=== PATIENT | male | born 1940 | race Caucasian/White ===

== ENCOUNTER → 2019-11-24 | Outpatient (CLI) | payer MEDICARE, OTHER ==
[~2019-11-24] MED LIST: ASPI-515 PO; ASPI-650 PO; ATOR40TA78 PO; CLOP75TA52 PO; FURO20TA3 PO; LORA-445 PO; OMEP20CA20 PO; POTA10TA5 PO
== END | disposition home or self-care (01) ==
LOC: CVU 08:25
PROVIDERS: ATTEND Internal Medicine Cardiovascular Disease
DX: Z01.810 Encounter for preprocedural cardiovascular examination (principal); I65.23 Occlusion and stenosis of bilateral carotid arteries; I35.0 Nonrheumatic aortic (valve) stenosis; I25.10 Atherosclerotic heart disease of native coronary artery without angina pectoris; J90 Pleural effusion, not elsewhere classified; J98.11 Atelectasis; I71.4 Abdominal aortic aneurysm, without rupture; M48.56XA Collapsed vertebra, not elsewhere classified, lumbar region, initial encounter for fracture; M85.80 Other specified disorders of bone density and structure, unspecified site; I70.8 Atherosclerosis of other arteries
CPT/HCPCS: 71250; 74176; 93880; 93978; 94060; 94726; 94729

== ENCOUNTER 2019-11-28 09:40 | Inpatient (IN) | payer MEDICARE ==
[~2019-11-28] VITALS: Ht 185.4 cm; Wt 98.4 kg
--- NOTE | 2019-11-28 09:41 | NUR ---
PT BROUGHT IN BY [facility] FROM HOME WITH CHIEF COMPLAINT OF SLURRED SPEECH, LEFT SIDED WEAKNESS. LAST SEEN NORMAL [id number]. EMS FSBS 48
--- NOTE | 2019-11-28 09:55 | NUR ---
requested records from [facility]
[2019-11-28] MEDS ORDERED: PLEASE ENTER ALLERGIES MC SCH (10:00)
[2019-11-28] MEDS ORDERED: SODIUM CHLORIDE FLUSH 10ML SYR IVF ONE (10:00)
[2019-11-28 10:33] LABS: MEAN CORPUSCULAR HEMOGLOBIN 30.3 pg (27.5-34.5); MEAN CORPUSCULAR HGB CONC 31.1 g/dL (33.2-36.2); MEAN PLATELET VOLUME 9.5 fL (7.4-10.4); PLATELET COUNT 156 x10^3/uL (130-400); RED BLOOD COUNT 4.51 x10^6/uL (4.38-5.82); RED CELL DISTRIBUTION WIDTH 16.5 % (9.4-14.8)
[2019-11-28 10:35] LABS: INTERNATIONAL NORMALIZED RATIO 2.25 (0.93-1.1); PROTHROMBIN TIME 23.4 Seconds (9.6-11.5)
[2019-11-28 10:39] LABS: ALBUMIN 3.3 g/dL (3.4-5.0); ANION GAP 23 mmol/L (5-15); CALCIUM 8.2 mg/dL (8.5-10.1); CHLORIDE 99 mmol/L (98-107)
[2019-11-28 10:43] LABS: ALKALINE PHOSPHATASE 192 U/L (45-117); BILIRUBIN,TOTAL 6.5 mg/dL (0.2-1.0); TOTAL PROTEIN 7.2 g/dL (6.4-8.2)
[2019-11-28 10:48] LABS: ALANINE AMINOTRANSFERASE 2128 U/L (12-78)
[2019-11-28 10:49] LABS: MICROSCOPIC INDICATED
[2019-11-28 10:52] LABS: SALICYLATE LEVEL < 1.7 mg/dL (2.8-20.0)
[2019-11-28 10:53] LABS: CREATININE 6.77 mg/dL (0.7-1.3); TROPONIN I 0.921 ng/mL (0.000-0.045)
[2019-11-28 10:57] LABS: AMPHETAMINE SCREEN, URINE Negative (Negative); BARBITURATE SCREEN, URINE Negative (Negative); BENZODIAZEPINE SCREEN, URINE Negative (Negative); CANNABINOID SCREEN, URINE Negative (Negative); COCAINE SCREEN, URINE Negative (Negative); METHADONE SCREEN, URINE Negative (Negative); OPIATE SCREEN, URINE Negative (Negative)
--- NOTE | 2019-11-28 10:57 | NUR ---
NAYELI CHAVEZ NOTIFIED OF UNSUCCESSFUL PIV ATTEMPTS AND CRITICAL LABS
[2019-11-28] MEDS ORDERED: SODIUM CHLORIDE 0.9% 1,000ML IVBOLUS ONE ×3 (11:00→14:00)
[2019-11-28] MEDS ORDERED: DEXTROSE 50%, 50ML SYRINGE IVPush ONE ×2 (11:00→13:30)
[2019-11-28] MEDS ORDERED: SODIUM BICARB 8.4%, 50ML SYRINGE IVPush ONE (11:00)
[2019-11-28] MEDS ORDERED: INSULIN REGULAR 100 UNITS/ML, 3ML VIAL IVPush ONE (11:00)
[2019-11-28] MEDS ORDERED: ALBUTEROL 0.5%, 20ML NPPB ONE (11:00)
[2019-11-28] MEDS ORDERED: SODIUM CHLORIDE 0.9% 1,000 ML IV ONE (11:00)
[2019-11-28] MEDS ORDERED: CALCIUM CHLORIDE 10%, 10ML SYR IVPush ONE (11:00)
[2019-11-28] MEDS ORDERED: ASPIRIN 300 MG SUPP PR ONE (11:00)
[2019-11-28 11:05] LABS: MD YES
[2019-11-28 11:07] LABS: ANISOCYTOSIS 1+; BAND#(MANUAL) 1.01 x10^3/uL; BANDS%(MANUAL) 7 % (0-7); LYMPH#(MANUAL) 0.72 x10^3/uL (1-3.4); LYMPHS% (MANUAL) 5 % (22-44); MONOS#(MANUAL) 0.29 x10^3/uL (0.3-2.7); MONOS% (MANUAL) 2 % (2-9); POLYCHROMASIA 1+; SEG#(MANUAL) 12.38 x10^3/uL (1.8-6.8); SEGS% (MANUAL) 86 % (42-75)
[2019-11-28 11:08] LABS: <PLATELET ESTIMATE> ADEQUATE; <PLT MORPHOLOGY> NORMAL PLT MORPH
--- NOTE | 2019-11-28 11:09 | NUR ---
NAYELI CHAVEZ AT BEDSIDE TO PLACE CENTRAL VENOUS CATH
[2019-11-28] MEDS ORDERED: CALCIUM CHLORIDE 10%, 10ML SYR ONE (11:33)
[2019-11-28] MEDS ORDERED: SODIUM BICARB 8.4%, 50ML SYRINGE ONE (11:33)
[2019-11-28] MEDS ORDERED: DEXTROSE 50%, 50ML SYRINGE ONE (11:34)
[2019-11-28] MEDS ORDERED: INSULIN SINGLE DOSE, ER ONE (11:34)
[2019-11-28] MEDS ORDERED: ALBUTEROL 0.5%, 20ML ONE (11:34)
--- NOTE | 2019-11-28 11:35 | NUR ---
CENTRAL LINE PLACEMENT CONFIRMED BY ASHWINI, OK TO USE PER NAYELI CHAVEZ
[2019-11-28] MEDS ORDERED: ALBUTEROL SULFATE 2.5MG/0.5ML ONE (11:49)
--- NOTE | 2019-11-28 12:26 | NUR ---
REPORT CALLED TO [facility] RN Addendum: 11/28/19 at 1252 by [email or web address] REPORT TO CHRISTO PLATA
--- NOTE | 2019-11-28 12:28 | NUR ---
TITLE I DIRECTOR: DISCUSSED WITH DR CHAVEZ, PT WITH INCREASED LATIC ACID AND WBC. "NOT A SEPSIS PICTURE, R/T KIDNEY FUNCTION"
[2019-11-28] MEDS ORDERED: OMEP20CA20 PO (13:04)
[2019-11-28] MEDS ORDERED: CLOP75TA52 PO (13:04)
[2019-11-28] MEDS ORDERED: ASPI-650 PO (13:04)
[2019-11-28] MEDS ORDERED: FURO20TA3 PO (13:04)
[2019-11-28] MEDS ORDERED: ATOR40TA78 PO (13:04)
[2019-11-28] MEDS ORDERED: POTA10TA5 PO (13:04)
[2019-11-28] MEDS ORDERED: LORA-445 PO (13:04)
[2019-11-28] MEDS ORDERED: ASPI-515 PO (13:05)
[2019-11-28 13:26] LABS: ANION GAP 19 mmol/L (5-15); CHLORIDE 105 mmol/L (98-107); CREATININE 6.23 mg/dL (0.7-1.3)
[2019-11-28] MEDS ORDERED: GLUCAGON 1 MG IM PRN (13:30)
[2019-11-28] MEDS ORDERED: PANTOPRAZOLE 80 MG in SODIUM CHLORIDE 0.9% 50 ML IV ONE (13:30)
[2019-11-28] MEDS ORDERED: DEXTROSE 50%, 50ML SYRINGE IVPush PRN (13:30)
[2019-11-28] MEDS ORDERED: DEXTROSE 4 GM TAB.CHEW PO PRN (13:30)
[2019-11-28] MEDS: PANTOPRAZOLE 80 MG in SODIUM CHLORIDE 0.9% 100 ML IV SCH (13:51)
[2019-11-28] MEDS ORDERED: NOREPINEPHRINE 1 MG/ML, 4ML ONE (13:55)
[2019-11-28] MEDS ORDERED: ONDANSETRON 2MG/ML, 2ML IVPush PRN (14:00)
[2019-11-28] MEDS ORDERED: LIDOCAINE-MPF 1%, 2ML ENDO PRN (14:00)
[2019-11-28] MEDS ORDERED: PHARMACY MAY ADJ FOR RENAL FX MC SCH (14:00)
[2019-11-28] MEDS ORDERED: FENTANYL PF 100 MCG/2ML IVPush PRN (14:00)
[2019-11-28] MEDS ORDERED: NOREPINEPHRINE 8 MG in SODIUM CHLORIDE 0.9% 242 ML IV PRN ×3 (14:00)
[2019-11-28 14:27] VITALS: BP 92/53
[2019-11-28 14:45] VITALS: BP 81/55
[2019-11-28] MEDS: VASOPRESSIN 20 UNIT in SODIUM CHLORIDE 0.9% 99 ML IV PRN ×2 (14:56→22:14)
[2019-11-28 14:58] LABS: TRIGLYCERIDES 108 mg/dL (50-200)
[2019-11-28 15:01] LABS: TROPONIN I 0.959 ng/mL (0.000-0.045)
[2019-11-28 15:07] VITALS: BP 89/60
[2019-11-28 15:36] VITALS: BP 94/68
[2019-11-28 16:18] LABS: ANION GAP 15 mmol/L (5-15); CHLORIDE 108 mmol/L (98-107); CREATININE 5.69 mg/dL (0.7-1.3)
[2019-11-28 16:25] VITALS: BP 98/50
[2019-11-28] MEDS ORDERED: MIDAZOLAM 1 MG/ML, 5ML ONE (16:29)
[2019-11-28] MEDS ORDERED: PROPOFOL 10 MG/ML, 100ML IV ONE (16:29)
[2019-11-28] MEDS ORDERED: ETOMIDATE 40 MG/20 ML ONE (16:29)
[2019-11-28 16:36] VITALS: BP 95/42
[2019-11-28] MEDS: SODIUM BICARBONATE 8.4% 150 MEQ in DEXTROSE 5% 1,000 ML IV SCH (17:00)
[2019-11-28] MEDS: CEFTRIAXONE PMX 1GM/50ML 50 ML IV SCH (17:00)
[2019-11-28 20:58] LABS: INTERNATIONAL NORMALIZED RATIO 1.85 (0.93-1.1); PROTHROMBIN TIME 19.2 Seconds (9.6-11.5)
[2019-11-28] MEDS: SODIUM CHLORIDE FLUSH 10ML SYR IVF SCH (21:00)
[2019-11-28] MEDS: NOREPINEPHRINE 32 MG in SODIUM CHLORIDE 0.9% 218 ML IV PRN (21:31)
[2019-11-29] MEDS: PANTOPRAZOLE 80 MG in SODIUM CHLORIDE 0.9% 100 ML IV SCH (01:17)
[2019-11-29] MEDS: SODIUM BICARBONATE 8.4% 150 MEQ in DEXTROSE 5% 1,000 ML IV SCH (01:17)
[2019-11-29 04:00] VITALS: BP 85/55
[2019-11-29 05:44] LABS: ANION GAP 13 mmol/L (5-15); CALCIUM 6.6 mg/dL (8.5-10.1); CHLORIDE 101 mmol/L (98-107); CREATININE 6.39 mg/dL (0.7-1.3)
[2019-11-29 05:59] LABS: MEAN CORPUSCULAR HEMOGLOBIN 30.1 pg (27.5-34.5); MEAN CORPUSCULAR HGB CONC 32.7 g/dL (33.2-36.2); MEAN PLATELET VOLUME 9.7 fL (7.4-10.4); PLATELET COUNT 130 x10^3/uL (130-400); RED BLOOD COUNT 4.71 x10^6/uL (4.38-5.82); RED CELL DISTRIBUTION WIDTH 16.9 % (9.4-14.8)
[2019-11-29] MEDS: VASOPRESSIN 20 UNIT in SODIUM CHLORIDE 0.9% 99 ML IV PRN ×2 (06:29→15:46)
[2019-11-29 07:17] LABS: MD YES
[2019-11-29 07:21] LABS: <PLATELET ESTIMATE> ADEQUATE; <PLT MORPHOLOGY> NORMAL PLT MORPH; ANISOCYTOSIS 1+; BAND#(MANUAL) 2.18 x10^3/uL; BANDS%(MANUAL) 12 % (0-7); LYMPH#(MANUAL) 1.09 x10^3/uL (1-3.4); LYMPHS% (MANUAL) 6 % (22-44); POLYCHROMASIA 1+; SEG#(MANUAL) 14.92 x10^3/uL (1.8-6.8); SEGS% (MANUAL) 82 % (42-75)
[2019-11-29 07:45] LABS: INTERNATIONAL NORMALIZED RATIO 1.93 (0.93-1.1)
[2019-11-29] MEDS: SODIUM CHLORIDE FLUSH 10ML SYR IVF SCH ×2 (09:00→21:00)
[2019-11-29] MEDS ORDERED: FUROSEMIDE 100 MG/10 ML IV ONE (09:00)
[2019-11-29] MEDS ORDERED: SODIUM CHLORIDE 77 MEQ in DEXTROSE 10% 1,000 ML IV SCH (09:30)
[2019-11-29] MEDS: PROPOFOL 100 ML IV PRN (09:40)
[2019-11-29] MEDS: NOREPINEPHRINE 32 MG in SODIUM CHLORIDE 0.9% 218 ML IV PRN (14:08)
[2019-11-29] MEDS: CEFTRIAXONE PMX 1GM/50ML 50 ML IV SCH (14:43)
[2019-11-29] MEDS ORDERED: PHYTONADIONE 10 MG/ML, 1ML IM ONE (16:30)
[2019-11-29] MEDS ORDERED: MEROPENEM 1 GM in SODIUM CHLORIDE 0.9% 100 ML IV ONE (16:30)
[2019-11-29 17:02] LABS: ALBUMIN 2.5 g/dL (3.4-5.0)
[2019-11-29 17:18] LABS: BILIRUBIN,INDIRECT 2.1 mg/dL (0.0-2.0); BILIRUBIN,TOTAL 9.1 mg/dL (0.2-1.0); TOTAL PROTEIN 5.9 g/dL (6.4-8.2)
[2019-11-29] MEDS: PHENYLEPHRINE 50 MG in SODIUM CHLORIDE 0.9% 245 ML IV PRN (20:29)
[2019-11-29] MEDS: PANTOPRAZOLE 40 MG IV IVPush SCH (22:21)
[2019-11-30] MEDS: EPINEPHRINE 5 MG in SODIUM CHLORIDE 0.9% 245 ML IV PRN ×2 (00:01→07:55)
[2019-11-30] MEDS: PROPOFOL 100 ML IV PRN ×2 (00:05→08:14)
[2019-11-30] MEDS: PHENYLEPHRINE 50 MG in SODIUM CHLORIDE 0.9% 245 ML IV PRN ×3 (02:26→07:54)
[2019-11-30 04:11] VITALS: BP 42/24
[2019-11-30] MEDS: NOREPINEPHRINE 32 MG in SODIUM CHLORIDE 0.9% 218 ML IV PRN ×2 (04:27)
[2019-11-30 04:53] LABS: MEAN CORPUSCULAR HEMOGLOBIN 30.3 pg (27.5-34.5); MEAN CORPUSCULAR HGB CONC 30.9 g/dL (33.2-36.2); MEAN PLATELET VOLUME 10.1 fL (7.4-10.4); PLATELET COUNT 57 x10^3/uL (130-400); RED CELL DISTRIBUTION WIDTH 19.3 % (9.4-14.8)
[2019-11-30 04:56] LABS: ANION GAP 24 mmol/L (5-15); CALCIUM 6.5 mg/dL (8.5-10.1); CHLORIDE 100 mmol/L (98-107); CREATININE 5.98 mg/dL (0.7-1.3)
[2019-11-30] MEDS ORDERED: SODIUM BICARB 8.4%, 50ML SYRINGE IVPush ONE (05:30)
[2019-11-30] MEDS ORDERED: SODIUM BICARB 8.4%, 50ML SYRINGE ONE (05:32)
[2019-11-30 05:54] LABS: MD YES
[2019-11-30 06:00] LABS: <PLATELET ESTIMATE> DECREASED; ANISOCYTOSIS 1+; BAND#(MANUAL) 1.03 x10^3/uL; BANDS%(MANUAL) 6 % (0-7); LARGE PLATELETS 1+; LYMPHS% (MANUAL) 7 % (22-44); METAMYELOCYTES# (MANUAL) 0.52 x10^3/uL (0-0); METAMYELOCYTES% (MANUAL) 3 % (0-1); POLYCHROMASIA 1+; SEG#(MANUAL) 14.45 x10^3/uL (1.8-6.8); SEGS% (MANUAL) 84 % (42-75)
[2019-11-30] MEDS ORDERED: SODIUM BICARBONATE 8.4% 150 MEQ in DEXTROSE 5% 1,000 ML IV SCH (06:00)
[2019-11-30] MEDS ORDERED: NOREPINEPHRINE 32 MG in SODIUM CHLORIDE 0.9% 218 ML IV PRN (07:32)
[2019-11-30] MEDS: SODIUM CHLORIDE FLUSH 10ML SYR IVF SCH (07:53)
[2019-11-30] MEDS: VASOPRESSIN 20 UNIT in SODIUM CHLORIDE 0.9% 99 ML IV PRN ×2 (07:56)
[2019-11-30] MEDS: PANTOPRAZOLE 40 MG IV IVPush SCH (09:49)
[2019-11-30] MEDS ORDERED: MORPHINE SULFATE 4 MG/ML, 1ML ONE (11:12)
[2019-11-30] MEDS ORDERED: LORazepam 2 MG/ML, 1ML ONE (11:13)
[2019-11-30] MEDS ORDERED: LORazepam 2 MG/ML, 1ML IVPush PRN (11:30)
[2019-11-30] MEDS ORDERED: ONDANSETRON 2MG/ML, 2ML IVPush PRN (11:30)
[2019-11-30] MEDS ORDERED: SCOPOLAMINE 1MG PATCH TD PRN (11:30)
[2019-11-30] MEDS ORDERED: ATROPINE OPHTH SOLN 1%, 5ML PO PRN (11:30)
[2019-11-30] MEDS ORDERED: MORPHINE SULFATE 4 MG/ML, 1ML IVPush PRN (11:30)
[2019-11-30] MEDS ORDERED: MORPHINE 30MG/30ML PCA.SYR IV PRN (11:30)
[2019-11-30] MEDS ORDERED: LORazepam 2 MG/ML, 1ML IV ONE (11:30)
[2019-11-30] MEDS ORDERED: MORPHINE SULFATE 4 MG/ML, 1ML IV ONE (11:30)
== END 2019-11-30 11:42 | disposition expired | DRG 208 ==
LOC: ED 12:24 → SUATTDRO 12:29 → CCU 12:44 → ED 13:02 → CCU 13:03
PROVIDERS: ADMIT Internal Medicine; ATTEND Internal Medicine
PROC: 0T9B30Z Drainage of Bladder with Drainage Device, Percutaneous Approach (ICD-10-PCS; principal; 2019-11-28)
PROC: 5A1945Z Respiratory Ventilation, 24-96 Consecutive Hours (ICD-10-PCS; 2019-11-28)
PROC: 05HM33Z Insertion of Infusion Device into Right Internal Jugular Vein, Percutaneous Approach (ICD-10-PCS; 2019-11-28)
PROC: 0BH17EZ Insertion of Endotracheal Airway into Trachea, Via Natural or Artificial Opening (ICD-10-PCS; 2019-11-28)
PROC: 02HV33Z Insertion of Infusion Device into Superior Vena Cava, Percutaneous Approach (ICD-10-PCS; 2019-11-29)
DX: J96.01 Acute respiratory failure with hypoxia (principal); D65 Disseminated intravascular coagulation [defibrination syndrome]; I21.4 Non-ST elevation (NSTEMI) myocardial infarction; G93.41 Metabolic encephalopathy; I50.23 Acute on chronic systolic (congestive) heart failure; K72.00 Acute and subacute hepatic failure without coma; N17.0 Acute kidney failure with tubular necrosis; K92.2 Gastrointestinal hemorrhage, unspecified; D62 Acute posthemorrhagic anemia; E87.1 Hypo-osmolality and hyponatremia; E87.2 Acidosis; I13.0 Hypertensive heart and chronic kidney disease with heart failure and stage 1 through stage 4 chronic kidney disease, or unspecified chronic kidney disease; D72.829 Elevated white blood cell count, unspecified; E16.2 Hypoglycemia, unspecified; E78.5 Hyperlipidemia, unspecified; E87.5 Hyperkalemia; I08.0 Rheumatic disorders of both mitral and aortic valves; I25.10 Atherosclerotic heart disease of native coronary artery without angina pectoris; J98.4 Other disorders of lung; K21.9 Gastro-esophageal reflux disease without esophagitis; K76.1 Chronic passive congestion of liver; N18.31 Chronic kidney disease, stage 3a; R57.8 Other shock; Z51.5 Encounter for palliative care; Z66 Do not resuscitate; I73.9 Peripheral vascular disease, unspecified; T68.XXXA Hypothermia, initial encounter; I25.2 Old myocardial infarction; X31.XXXA Exposure to excessive natural cold, initial encounter; Z79.02 Long term (current) use of antithrombotics/antiplatelets; Z86.73 Personal history of transient ischemic attack (TIA), and cerebral infarction without residual deficits; Z95.2 Presence of prosthetic heart valve; Z87.891 Personal history of nicotine dependence; Z95.5 Presence of coronary angioplasty implant and graft; Z79.899 Other long term (current) drug therapy; Z79.82 Long term (current) use of aspirin
CPT/HCPCS: 36415; 36430; 36556; 36600; 70450; 71045; 80048; 80053; 80076; 80307; 81001; 82140; 82533; 82550; 82803; 82962; 83605; 83735; 83880; 84132; 84478; 84484; 85014; 85018; 85025; 85384; 85610; 85730; 86705; 86706; 86850; 86900; 86923; 87040; 87070; 87077; 87081; 87086; 87186; 87205; 87340; 87635; 93005; 93306; 94002; 94003; 96361; 96374; 96375; G0378; J0171; J0696; J1815; J1940; J2185; J2250; J2704; J3430; J7070; C1751; C9113; J1642; J2060; J2270; J2370; J7030; J7050; P9016; P9017